=== PATIENT | female | born 1985 | race Caucasian/White ===

== ENCOUNTER → 2017-04-02 | Outpatient (CLI) | payer OTHER | LOC: FIMAGING 08:03 | PROVIDERS: ATTEND Obstetrics & Gynecology | DX: Z36 Encounter for antenatal screening of mother (principal); Z3A.20 20 weeks gestation of pregnancy ==

== ENCOUNTER 2017-08-11 14:55 | Inpatient (IN) | payer OTHER ==
[2017-08-11] MEDS ORDERED: AMPICILLIN SODIUM 2 GM in NS 100 ML IV ONE (15:34)
[2017-08-11] MEDS ORDERED: LR 1,000 ML IV PRN (15:34)
[2017-08-11] MEDS ORDERED: TERBUTALINE SULFATE 1 MG/ML VIAL IV PRN (15:34)
[2017-08-11] MEDS ORDERED: EPSOM SALT 454 GM TP PRN (15:34)
[2017-08-11] MEDS ORDERED: OLIVE OIL 118 ML BTL MISC PRN (15:34)
[2017-08-11] MEDS ORDERED: OXYTOCIN 20 UNITS in LR 1,000 ML IV PRN (15:34)
--- NOTE | 2017-08-11 16:23 | GHP ---
[f rep st] PREOP HISTORY AND PHYSICAL DATE OF ADMISSION: 08/11/2017 ADMITTING DIAGNOSIS: Intrauterine at 39 and 0/7 weeks gestation with spontaneous rupture of membranes of clear fluid and spontaneous labor. HISTORY OF PRESENT ILLNESS: The patient is a 32-year-old 2, para 0-0-1- 0 with a last menstrual period of 11/06/2016, and an EDC of 08/18/2017. This was set by a first trimester ultrasound. The patient initially had good care at [facility]. She transferred to [facility] at 24 weeks, and has had an uncomplicated course. She has a history of polycystic ovarian syndrome. She was on metformin and progesterone in her first trimester, and has since discontinued. On the evening of the and primer powder blender wet on the , the patient began having cramping and increased contractions. Approximately 11:00 a.m., the patient had a spontaneous gush of clear fluid, and had a slight bloody mucus in the fluid, and her contractions have increased in intensity. She presented to Labor and Delivery. She had a positive pool, Nitrazine, as well as fern test. Her cervix was 2 cm, 80%, -1, and baby is cephalic. She is hammad every 3-4 minutes, and heart tones are category 1. PAST OBSTETRICAL HISTORY: In August 2015, she had a missed , and a D and C at 6 weeks, and this is her second . PAST GYNECOLOGICAL HISTORY: She had abnormal cycles in her life, diagnosed with PCOS, was given metformin to conceive, but did conceive with metformin and acupuncture spontaneously. She had a history of an abnormal Pap in October 2015 , had a negative colpo, and she has used NuvaRing in the past for contraception. PAST MEDICAL HISTORY: None. PAST SURGICAL HISTORY: D and C. Significant accident, she had a back accident in 2009. She had a head fracture, and a right scaphoid fracture, did not require surgery. ALLERGIES: No known drug allergies. MEDICATIONS: vitamins with DHA and iron. LABS: She is A positive, antibody negative, RPR nonreactive, rubella immune, hepatitis negative, HIV negative. Acystic fibrosis negative. Verifi was negative. AFP was negative. Gonorrhea and chlamydia negative. A 1-hour GTT 88. GBS is positive. SOCIAL HISTORY: She is . She lives with her , Dominic. She works as a physical therapist. She denies tobacco, alcohol, and drug use. REVIEW OF SYSTEMS: Negative, except for pertinent in HPI as above for labor contractions and leakage of fluid. FAMILY HISTORY: Her father has had an OH, and has heart disease, as well as her paternal grandfather. Maternal grandfather had prostate cancer. Maternal grandmother also had cancer, unsure type. No other significant family history. OBJECTIVE: VITAL SIGNS: Currently, she is afebrile. Vital signs are stable. heart tones are in the 130s. Reactive moderate variability category 1. She is hammad every 3 to 4 minutes. Again, cervix is 2, 80%, -1, and she is rupture for clear fluid. GBS positive. ASSESSMENT/PLAN: A 32-year-old 2, para 0-0-1-0 at 39 and 0/7 weeks gestation with spontaneous rupture and spontaneous labor. The patient will have ampicillin started per protocol, and have active labor management. /[id number]/MODL MTDD
[2017-08-11 16:34] LABS: % IMMATURE GRANULYOCYTES 0.7 % (0.0-1.1); ABSOLUTE IMMATURE GRANULOCYTES 0.07 10^3/uL (0.00-0.10); ADD DIFF? NO; ADD MORPH? NO; ADD SCAN? NO; ATYPICAL LYMPHOCYTE FLAG 0 (0-99); FRAGMENT RBC FLAG 0 (0-99); HEMATOCRIT 38.8 % (38.0-47.0); HEMOGLOBIN 13.8 g/dL (12.6-16.3); LEFT SHIFT FLG 0 (0-99); LIPEMIA HEMOLYSIS FLAG 90 (0-99); MEAN CELL HEMOGLOBIN 30.5 pg (27.9-34.1); MEAN CELL HEMOGLOBIN CONCENTR. 35.6 g/dL (32.4-36.7); MEAN CELL VOLUME 85.7 fL (81.5-99.8); MEAN PLATELET VOLUME 10.1 fL (8.7-11.7); PLATELET CLUMPS FLAG 0 (0-99); PLATELET COUNT 246 10^3/uL (150-400); RED BLOOD CELL COUNT 4.53 10^6/uL (4.18-5.33)
--- NOTE | 2017-08-11 18:11 | OBPROG ---
Labor Progress Note Assessment/Plan: Assessment: 32 y/o @ 39 weeks with SROM and active spontaneous labor doing well. Plan: Good cervical progress. Pt is coping well with contractions getting into the tub. Pt may wish to have an epidural. 08/11/17 18:12 Subjective/Intrapartum Course: 08/11/17 18:07 Pt is feeling stronger contractions. She is coping well with good support. Objective: 08/11/17 16:20 Patient ABO/Rh A POSITIVE 08/11/17 16:20 - SVE Dilation (cm): 5 Effacement (%): 90 Station: 0 Membranes: SROM Amniotic Fluid Color: Clear - Contraction Pattern Assessment Current Contraction Pattern: Regular (Q 2-3) - FHR Assessment Watkins FHR (bpm): 141 FHR Pattern Variability: Moderate FHR Category: 1 - AP Antepartum Course: 08/11/17 18:08 Transfer from [facility] @ 24 weeks. GBS + Oxytocin Orders Assessment - Pre-Induction/Augmentation Assessment Gestational Age: 39 week(s) and 0 day(s) ICD10 Worksheet Patient Problems: Problems Problem Status Onset Active labor at term Acute Retained tissue Acute - ICD10 Problem Qualifiers (1) Active labor at term
[2017-08-11] MEDS ORDERED: AMPICILLIN SODIUM 1 GM in NS 100 ML IV SCH (19:35)
[2017-08-11] MEDS ORDERED: HYDROCORTISONE 0.5% CREAM TP PRN (19:49)
[2017-08-11] MEDS ORDERED: ACETAMINOPHEN 325 MG TAB PO PRN (19:49)
[2017-08-11] MEDS ORDERED: SIMETHICONE 80 MG TAB CHEW PO PRN (19:49)
[2017-08-11] MEDS ORDERED: HYDROCODONE/APAP 5/325 TAB PO PRN (19:49)
--- NOTE | 2017-08-11 19:53 | OBDEL ---
Info Type: Vaginal Presentation at Delivery: Vertex L&D Analgesia/Anesthesia Type: Local (lidocaine 1%) GBS+: Yes Antibiotic Used for + GBS: Ampicillin Intrapartum Medications: Discontinued Medications Generic Name Dose Route Start Last Admin Trade Name Mag PRN Reason Stop Dose Admin Ampicillin Sodium 2 gm/ Sodium 110 mls @ 220 mls/hr 08/11/17 15:34 08/11/17 16:15 Chloride IV 08/11/17 16:03 110 mls ONCE ONE Administration Protocol - Hospital Course Intrapartum: 08/11/17 18:07 Pt is feeling stronger contractions. She is coping well with good support. Indications for Delivery: Spontaneous Labor, SROM Vaginal Delivery - Delivery Provider Delivery Physician/CNM: Kamala Borges - Labor and Delivery Onset of Contractions Date: 08/11/17 Onset of Contractions Time: 13:00 Onset of Contractions Type: Spontaneous Rupture of Membranes Date: 08/11/17 Rupture of Membranes Time: 10:30 Rupture of Membranes Type: Spontaneous Amniotic Fluid Color: Clear Dilation Complete Date: 08/11/17 Dilation Complete Time: 19:14 Placenta Delivery Date: 08/11/17 Placenta Delivery Time: 19:33 Total Hours of Labor: 6 Laceration: 1st Degree, Other (Specify) (B labial) Repair: 3-0, Vicryl Vaginal Sponge Count Correct: Yes Vaginal Needle Count Correct: Yes Vaginal Sweep Performed: No EBL: 150 Delivery Events: None - Medications Labor Augmentation/Induction Methods Used: None [place] Data Watkins Delivery Date: 08/11/17 Delivery Time: 19:27 TODD: 08/18/17 Gestational Age: 39 week(s) and 0 day(s) Sex of Infant: Female Score (1 Min): 8 Score (5 Min): 9 ICD10 Worksheet Patient Problems: Problems Problem Status Onset Active labor at term Acute (spontaneous vaginal delivery) Acute Retained tissue Acute - ICD10 Problem Qualifiers (1) Active labor at term (2) (spontaneous vaginal delivery)
[2017-08-11] MEDS: IBUPROFEN 600 MG TAB PO PRN (20:31)
[2017-08-12] MEDS: IBUPROFEN 600 MG TAB PO PRN ×2 (02:01→08:00)
[2017-08-12 06:55] VITALS: RESP 18
[2017-08-12] MEDS: DOCUSATE SODIUM 100 MG CAP PO PRN ×2 (08:00→23:14)
--- NOTE | 2017-08-12 09:54 | OBPP ---
Progress Note Assessment/Plan: Assessment: 32 yo PPD#1 s/p doing well. Plan: Routine PP care. DC home tomorrow. 08/12/17 09:52 Subjective/ Course: 08/12/17 09:53 Betty reports minimal lochia. She is voiding without difficulty. Pain is 2/10. She is ambulating and . She denies significant faintness or weakness. Objective: 08/11/17 16:20 Patient ABO/Rh A POSITIVE 08/11/17 16:20 Temp Pulse Resp BP Pulse Ox 36.4 C 69 18 118/70 96 08/12/17 01:15 08/12/17 01:15 08/12/17 01:15 08/12/17 01:15 08/12/17 01:15 Uterine Position/Fundal Height: Umbilicus -1, Midline Uterine Tone: Firm Physical Exam - Physical Exam Respiratory: lungs clear Cardiac/Chest: regular rate, rhythm Abdomen: non-tender, soft Extremities: normal inspection Neuro/Psych: no motor/sensory deficits, alert, normal mood/affect, oriented x 3
[2017-08-12 20:20] VITALS: O2SAT 96
--- NOTE | 2017-08-13 06:55 | OBPP ---
Progress Note Assessment/Plan: Assessment: well nipples intact denies pain voiding without difficulty scant rubra lochia perineum approximated Plan:discharge to home with instructions fu 4 weeks and 6 weeks, discussed depression, rest, pain management, pelvic rest, exercise, continue pnv, contraception, ss infection, bleeding pattern, pericare 08/13/17 06:53 Subjective/ Course: 08/12/17 09:53 Betty reports minimal lochia. She is voiding without difficulty. Pain is 2/10. She is ambulating and . She denies significant faintness or weakness. 08/13/17 06:52 Doing well denies difficulties. PAin well managed. well. " A little jaundiced". Voiding without difficulty Objective: 08/11/17 16:20 Patient ABO/Rh A POSITIVE 08/11/17 16:20 Temp Pulse Resp BP Pulse Ox 36.9 C 72 18 120/86 H 96 08/12/17 20:00 08/12/17 20:00 08/12/17 20:00 08/12/17 20:00 08/12/17 20:00 Uterine Position/Fundal Height: At Umbilicus Uterine Tone: Firm Physical Exam - Physical Exam General Appearance: WD/WN, alert, no apparent distress Abdomen: other (scant rubra lochia/ perineum approximated/ ff@u) Extremities: normal range of motion, Loretta's sign (negative bilaterally) DTR- Lower Extremities: Knee (R): 1+, Knee (L): 1+ (no clonus) Skin: normal color, warm/dry Neuro/Psych: no motor/sensory deficits, alert, normal mood/affect, oriented x 3
--- NOTE | 2017-08-13 07:00 | OBGCSDC ---
General Delivery Information - General Info : 2 Para: 1 Abortions: 1 Type: Vaginal L&D Analgesia/Anesthesia Type: None, Local Admission Date: 08/11/17 Labs: Patient ABO/Rh A POSITIVE 08/11/17 16:20 Hct 38.8 % (38.0-47.0) 08/11/17 16:20 - Hospital Course Antepartum: 08/11/17 18:08 Transfer from [facility] @ 24 weeks. GBS + Intrapartum: 08/11/17 18:07 Pt is feeling stronger contractions. She is coping well with good support. : 08/12/17 09:53 Betty reports minimal lochia. She is voiding without difficulty. Pain is 2/10. She is ambulating and . She denies significant faintness or weakness. 08/13/17 06:52 Doing well denies difficulties. PAin well managed. well. " A little jaundiced". Voiding without difficulty Vaginal - Delivery Provider Delivery Physician/CNM: Kamala Borges - Diagnosis Labor: Spontaneous Rupture of Membranes Type: Spontaneous Amniotic Fluid Color: Clear Laceration: 1st Degree, Other (Specify) (B labial) Repair: 3-0, Vicryl Delivery Events: None - Delivery EBL: 150 Data Watkins Delivery Date: 08/11/17 Delivery Time: 19:27 TODD: 08/18/17 Gestational Age: 39 week(s) and 2 day(s) Sex of Infant: Female [place] Weight (gm): 2554 g Score (1 Min): 8 Score (5 Min): 9 Discharge Information - Discharge Information Prescriptions: Ibuprofen [Motrin (*)] 600 mg PO Q6HRS PRN #30 tab PRN Reason: post , inflammation Condition: Good
[2017-08-13 08:15] VITALS: BP 126/86; PULSE 62; TEMP 99.2
== END 2017-08-13 11:15 | disposition home or self-care (01) | DRG 775 ==
LOC: FLD 14:55 → FOB 22:38
PROVIDERS: ADMIT Obstetrics & Gynecology; ATTEND Obstetrics & Gynecology
PROC: 0HQ9XZZ Repair Perineum Skin, External Approach (ICD-10-PCS; principal; 2017-08-11)
PROC: 10E0XZZ Delivery of Products of Conception, External Approach (ICD-10-PCS; principal; 2017-08-11)
DX: O70.0 First degree perineal laceration during delivery (principal); O99.820 Streptococcus B carrier state complicating pregnancy; Z3A.39 39 weeks gestation of pregnancy; Z37.0 Single live birth
CPT/HCPCS: J0290; J2590

== ENCOUNTER → 2018-10-28 | Outpatient (CLI) | payer OTHER | LOC: FIMAGING 07:27 | PROVIDERS: ATTEND Advanced Practice Midwife | DX: O09.292 Supervision of pregnancy with other poor reproductive or obstetric history, second trimester (principal); Z3A.20 20 weeks gestation of pregnancy ==

== ENCOUNTER 2019-03-18 05:40 | Inpatient (IN) | payer OTHER ==
[2019-03-18] MEDS ORDERED: LIDOCAINE 1% 300 MG/30 ML SDV ONE (05:53)
[2019-03-18] MEDS ORDERED: OLIVE OIL 118 ML BTL MISC ONE (05:53)
[2019-03-18] MEDS ORDERED: OXYTOCIN 10 UNIT/ML VIAL ONE (05:53)
[2019-03-18] MEDS ORDERED: AMMONIA AROMATIC 1 EACH AMP IH ONE (05:53)
[2019-03-18] MEDS ORDERED: TERBUTALINE SULFATE 1 MG/ML VIAL ONE (05:53)
[2019-03-18] MEDS ORDERED: MISOPROSTOL 200 MCG TAB ONE (05:54)
[2019-03-18] MEDS ORDERED: IBUPROFEN 600 MG TAB PO ONE (07:01)
[2019-03-18] MEDS ORDERED: AMMONIA AROMATIC 1 EACH AMP IH PRN (07:02)
[2019-03-18] MEDS ORDERED: EPSOM SALT 454 GM TP PRN (07:02)
[2019-03-18] MEDS ORDERED: LR 1,000 ML IV PRN (07:02)
[2019-03-18] MEDS ORDERED: TERBUTALINE SULFATE 1 MG/ML VIAL IV PRN (07:02)
[2019-03-18] MEDS ORDERED: OXYTOCIN/RINGERS LACTATE 1,000 ML IV PRN (07:02)
[2019-03-18] MEDS ORDERED: MISOPROSTOL 200 MCG TAB PO PRN (07:02)
[2019-03-18] MEDS ORDERED: IBUPROFEN 600 MG TAB PO PRN (07:02)
[2019-03-18] MEDS ORDERED: OLIVE OIL 118 ML BTL MISC PRN (07:02)
[2019-03-18] MEDS ORDERED: LIDOCAINE 1% 300 MG/30 ML SDV SC PRN (07:02)
[2019-03-18] MEDS ORDERED: DOCUSATE SODIUM 100 MG CAP PO PRN (07:18)
[2019-03-18] MEDS ORDERED: ACETAMINOPHEN 325 MG TAB PO PRN (07:18)
--- NOTE | 2019-03-18 07:23 | OBDEL ---
Info Type: Vaginal Presentation at Delivery: Vertex L&D Analgesia/Anesthesia Type: None GBS+: Yes (not treat) - Hospital Course Intrapartum: 03/18/19 07:20 mom progressed rapidly to complete after arrival Indications for Delivery: Spontaneous Labor Vaginal Delivery - Delivery Provider Delivery Physician/CNM: Anita Cowart - Labor and Delivery Onset of Contractions Date: 03/18/19 Onset of Contractions Time: 02:00 Onset of Contractions Type: Spontaneous Rupture of Membranes Date: 03/18/19 Rupture of Membranes Time: 06:08 Rupture of Membranes Type: Spontaneous Amniotic Fluid Color: Clear Dilation Complete Date: 03/18/19 Dilation Complete Time: 06:10 Placenta Delivery Date: 03/18/19 Placenta Delivery Time: 06:26 Total Hours of Labor: 4 Laceration: 1st Degree (no repair) Vaginal Sponge Count Correct: Yes Vaginal Needle Count Correct: Yes Vaginal Sweep Performed: Yes EBL: 150 Delivery Events: None [place] Data TODD: 03/15/19 Gestational Age: 40 week(s) and 3 day(s) Watkins Delivery Date: 03/18/19 Delivery Time: 06:18 Sex of : Male Score (1 Min): 8 Score (5 Min): 8 ICD10 Worksheet Patient Problems: Problems Problem Status Onset Postmaturity , 40-42 weeks gestation Acute (normal spontaneous vaginal delivery) Acute
[2019-03-18] MEDS: IBUPROFEN 600 MG TAB PO PRN (19:34)
[2019-03-19] MEDS: IBUPROFEN 600 MG TAB PO PRN (03:11)
[2019-03-19 07:53] VITALS: BP 110/80
--- NOTE | 2019-03-19 10:42 | OBGCSDC ---
General Delivery Information - General Info : 3 Para: 1 Abortions: 1 Type: Vaginal L&D Analgesia/Anesthesia Type: None Admission Date: 03/18/19 Labs: Temp Pulse Resp BP Pulse Ox 03/19/19 07:51 36.6 C 52 L 14 110/80 96 03/18/19 19:29 36.6 C 83 16 132/83 H 95 03/18/19 13:00 36.4 C 60 14 122/77 H - Hospital Course Intrapartum: 03/18/19 07:20 mom progressed rapidly to complete after arrival : 03/19/19 10:41 S) Pt doing well, reports min pain and bleeding. she is ambulating and voiding without difficulty. She is . She desires discharge home today. O) VSS, afebrile constitutional: WNF, A&Ox3 HEENT: normocephalic, atraumatic, supple Heart: RRR, No murmur Chest: CTA-B Breasts: soft, nontender, not engorged, nipples sore, but intact Abdomen: Soft, nontender Uterus: Firm at U-2 Lochia: Minimal rubra Perineum: Intact, healing well Extremities: Trace edema, and negative Loretta's sign Neuro: Grossly normal A) 33-year-old S/P PPD#1 P) Discharge home today Continue Pelvic rest [id number] Discussed danger signs (infection, preeclampsia, depression, heavy bleeding, etc ) RTO in 2/4/6 weeks 03/19/19 10:42 Vaginal - Delivery Provider Delivery Physician/CNM: Anita Cowart - Diagnosis Labor: Spontaneous Rupture of Membranes Type: Spontaneous Amniotic Fluid Color: Clear Laceration: 1st Degree (no repair) Delivery Events: None - Delivery EBL: 150 Data TODD: 03/15/19 Gestational Age: 40 week(s) and 4 day(s) Watkins Delivery Date: 03/18/19 Delivery Time: 06:18 Sex of : Male [place] Weight (gm): 2850 g Score (1 Min): 8 Score (5 Min): 8 Discharge Information - Discharge Information Condition: Good
== END 2019-03-19 13:40 | disposition home or self-care (01) | DRG 807 ==
LOC: FLD 05:40 → FOB 10:00
PROVIDERS: ADMIT Advanced Practice Midwife; ATTEND Advanced Practice Midwife
PROC: 10E0XZZ Delivery of Products of Conception, External Approach (ICD-10-PCS; principal; 2019-03-18)
DX: O70.0 First degree perineal laceration during delivery (principal); O99.820 Streptococcus B carrier state complicating pregnancy; Z3A.40 40 weeks gestation of pregnancy; Z37.0 Single live birth
CPT/HCPCS: J2590; J3105